=== PATIENT | male | born 1970 | race American Indian/Alaskan Native ===

== ENCOUNTER 2020-08-11 04:01 | Emergency (ER) | payer MEDICAID ==
[2020-08-11 04:56] LABS: Basophils # (Auto) 0.1 K/mm3 (0.0-0.1); Basophils % (Auto) 0.5 % (0.0-1.8); Eosinophils # (Auto) 0.1 K/mm3 (0.0-0.4); Hematocrit 47.9 % (35.5-45.6); Hemoglobin 16.3 gm/dl (11.8-15.2); Lymphocytes # (Auto) 1.4 K/mm3 (1.2-5.4); Lymphocytes % (Auto) 11.4 % (13.4-35.0); Mean Corpuscular HGB Conc 34 % (32-34); Mean Corpuscular Volume 88 fl (84-94); Monocytes # (Auto) 0.7 K/mm3 (0.0-0.8); Monocytes % (Auto) 6.1 % (0.0-7.3); Platelet Count 339 K/mm3 (140-440); Red Blood Count 5.47 M/mm3 (3.65-5.03); Red Cell Distribution Width 15.8 % (13.2-15.2)
[2020-08-11 05:10] LABS: Calcium 9.7 mg/dL (8.4-10.2)
[2020-08-11 05:57] VITALS: BP 127/103
--- NOTE | 2020-08-11 07:28 | Emergency Department Report ---
HPI - General Chief Complaint: Psych Time Seen by Provider: 08/11/20 07:11 - [facility] HPI: Room 22 The patient is a 49-year-old male present with a chief complaint of paranoia. The patient states last night he felt as though something was not right. The pa dolores states he heard something outside of his window. Patient states he believes he heard whispering. He states he discussed this with the home salesman/owner who he is staying with. The patient states he eventually called police because of the sounds he heard. Patient denies suicidal homicidal ideation. Patient admits to auditory hallucinations stating he hears voices at times this is a things that do not make sense for sounds like a radio playing in the background. Patient denies command hallucinations. Patient states he has been mostly compliant with his psychiatric medications recently. ED Past Medical Hx - Past Medical History Previous Medical History?: Yes Hx Hypertension: Yes Hx Psychiatric Treatment: Yes (schizophrenia, depression) - Surgical History Additional Surgical History: left hip - Family History Family history: no significant - Social History Smoking Status: Current Every Day Smoker (1 pack/day) Substance Use Type: Alcohol, Marijuana ED Review of Systems ROS: Stated complaint: MH EVAL Other details as noted in HPI Constitutional: no symptoms reported Eyes: denies: eye pain ENT: denies: ear pain Respiratory: no symptoms reported Cardiovascular: denies: chest pain Endocrine: no symptoms reported Gastrointestinal: denies: abdominal pain Genitourinary: denies: dysuria Musculoskeletal: denies: back pain Neurological: denies: headache Psychiatric: auditory hallucinations. denies: homicidal thoughts, suicidal thoughts Physical Exam - Physical Exam Vital Signs: Vital Signs 08/11/20 04:29 Temperature 98.5 F Pulse Rate 114 H Respiratory 18 Rate Blood Pressure 127/103 O2 Sat by Pulse 96 Oximetry Physical Exam: GENERAL: The patient is well-developed well-nourished male lying on stretcher not appearing to be in acute distress. [] HEENT: Normocephalic. Atraumatic. Extraocular motions are intact. Patient has moist mucous membranes. NECK: Supple. Trachea midline CHEST/LUNGS: Clear to auscultation. There is no respiratory distress noted. HEART/CARDIOVASCULAR: Regular. There is no tachycardia. There is no gallop rub or murmur. ABDOMEN: Abdomen is soft, nontender. Patient has normal bowel sounds. There is no abdominal distention. SKIN: There is no rash. There is no edema. There is no diaphoresis. NEURO: The patient is awake, alert, and oriented. The patient is cooperative. The patient has no focal neurologic deficits. The patient has normal speech MUSCULOSKELETAL: There is no evidence of acute injury. ED Course Vital Signs 08/11/20 04:29 Temperature 98.5 F Pulse Rate 114 H Respiratory 18 Rate Blood Pressure 127/103 O2 Sat by Pulse 96 Oximetry ED Medical Decision Making - Lab Data Result diagrams: 08/11/20 04:35 08/11/20 04:35 - Differential Diagnosis Schizophrenia Critical care attestation.: If time is entered above; I have spent that time in minutes in the direct care of this critically ill patient, excluding procedure time. ED Disposition Clinical Impression: Schizophrenia Disposition: DC/TX-65 PSY HOSP/PSY UNIT Is pt being admited?: No Does the pt Need Aspirin: No Condition: Stable Additional Instructions: Professional and Agency Contacts To help Resolve Crises (08/10) [place] Crisis Line: Suicide Prevention Line: Crisis Text Line: Text START to [phone] Emergency: 911 Outpatient COMMUNITY Behavioral Health Resources: [place]: [facility] [address] [place], [place] [address] [facility] [address] [place] [address] Saturday thru Saturday - 8am - 5pm Call to schedule an assessment for mental health and substance abuse programs [facility] Address: [address] [place] [address] Saturday thru Saturday- 7am-2pm [facility] Address: [address] [place] [address] Saturday thru Saturday: 8:30AM-5PM Referrals: PRIMARY CAREMD [Primary Care Provider] - 3-5 Days
--- NOTE | 2020-08-11 11:16 | Consultation ---
History of Present Illness - Reason for Consult Consult date: 08/11/20 Reason for consult: hallucinations - History of Present Psychiatric Illness Per ED Note: The patient is a 49-year-old male present with a chief complaint of paranoia. The patient states last night he felt as though something was not right. The patient states he heard something outside of his window. Patient states he believes he heard whispering. He states he discussed this with the home risk consultant who he is staying with. The patient states he eventually called police because of the sounds he heard. Patient denies suicidal homicidal ideation. Patient admits to auditory hallucinations stating he hears voices at times this is a things that do not make sense for sounds like a radio playing in the background. Patient denies command hallucinations. Patient states he has been mostly compliant with his psychiatric medications recently. Adriano Maier is a 49y/o male patient who presented to the ER for paranoia. During my evaluation of the patient today he is a/o x 4. He is calm, cooperative and conversational. He is pleasant. The patient says he has a history of schizophrenia. He says he's on seroquel, prozac and xanax and take them every day. The patient says he has panic attacks. He denies SI/HI. He states "noooo, I wouldn't do nothing like that." The patient says he lives with this lady. He says "at times though I do feel like she is talking about me. She be acting funny sometimes." The patient denies hallucinations at present. He states "I know I told them that last night, but I feel better." The patient laughs and states "I was tripping." He verbalizes using THC and "a little alcohol every now and then." PAST PSYCHIATRIC HISTORY Diagnoses: Schizophrenia Suicide attempts or Self-harm behavior: Denies Prior psychiatric hospitalizations: Denies Substance Abuse history: "weed" Previous psychiatric medications tried: seroquel, xanax, prozac Outpatient treatment: Yes PAST MEDICAL HISTORY: None reported Family Psychiatric History: None reported or documented SOCIAL HISTORY Marital Status: Single Living Arrangements: with a lady Employment Status: Disabled Access to guns/weapons: Denies Education: high school History of Abuse: none reported Legal History: none REVIEW OF SYSTEMS Constitutional: Negative for weight loss ENT: Negative for stridor Respiratory: Negative for cough or hemoptysis All other systems reviewed and are negative MENTAL STATUS EXAMINATION General Appearance and Behavior: Age appropriate, not wearing appropriate clothes, good eye contact, calm and cooperative, polite with questioning, pleasant Cooperation: Engaged Psychomotor Behavior: Psychomotor normal Mood: good Affect and affective range: Euthymic Thought Process: Goal directed Thought Content: None Speech: Normal tone and pace Suicidal Ideation: Denies Homicidal Ideation: Denies Hallucinations: Denies Delusions: None elicited Insight and Judgment: Limited insight and judgment Memory: Normal Attention: Undivided attention impaired Orientation: Alert, oriented x 4 Assessment: Hx of schizophrenia Treatment Plan No scripts given at this time Continue home meds previously prescribed Risks, benefits and alternatives of medications discussed with the patient, questions answered and consent obtained from patient. PSYCHOTHERAPY: Supportive psychotherapy provided MEDICAL: Per primary team DELIRIUM PRECAUTIONS: Please re-orient patient frequently, keep lights on during the day, and minimize benzodiazepines and opiates as these medications could worsen patient's confusion. HOME OFFICE CLAIMS EXAMINER: per primary DISPOSITION: Do not recommend acute inpatient psychiatric hospitalization at this time. The patient is to abstain from all illicit drug use FOLLOW-UP: will sign off Thank you for the consult. Please contact with any questions and/or concerns. Case discussed with Dr. Almonte who agrees with current disposition Medications and Allergies Allergies Allergy/AdvReac Type Severity Reaction Status Date / Time No Known Allergies Allergy Unverified 08/11/20 04:28 Mental Status Exam - Vital signs Last Vital Signs Temp 98.5 F 08/11/20 04:29 Pulse 114 H 08/11/20 04:29 Resp 18 08/11/20 04:29 BP 127/103 08/11/20 04:29 Pulse Ox 96 08/11/20 04:29 Results Result Diagrams: 08/11/20 04:35 08/11/20 04:35 Abnormal lab results 08/11/20 08/11/20 08/11/20 Range/Units 04:35 04:35 04:35 WBC (4.5-11.0) K/mm3 RBC (3.65-5.03) M/mm3 Hgb (11.8-15.2) gm/dl Hct (35.5-45.6) % RDW (13.2-15.2) % Lymph % (Auto) (13.4-35.0) % Seg Neutrophils % (40.0-70.0) % Seg Neutrophils # (1.8-7.7) K/mm3 Creatinine 1.9 H (0.8-1.3) mg/dL Glucose 126 H (75-100) mg/dL Salicylates < 0.3 L (2.8-20.0) mg/dL Acetaminophen 5.0 L (10.0-30.0) ug/mL 08/11/20 Range/Units 04:35 WBC 12.2 H (4.5-11.0) K/mm3 RBC 5.47 H (3.65-5.03) M/mm3 Hgb 16.3 H (11.8-15.2) gm/dl Hct 47.9 H (35.5-45.6) % RDW 15.8 H (13.2-15.2) % Lymph % (Auto) 11.4 L (13.4-35.0) % Seg Neutrophils % 81.0 H (40.0-70.0) % Seg Neutrophils # 9.9 H (1.8-7.7) K/mm3 Creatinine (0.8-1.3) mg/dL Glucose (75-100) mg/dL Salicylates (2.8-20.0) mg/dL Acetaminophen (10.0-30.0) ug/mL All other labs normal.
[2020-08-11 12:35] LABS: Amphetamine Screen,Urine PRESUMPTIVE POSITIVE; Benzodiazepines Screen,Urine PRESUMPTIVE NEGATIVE; Cannabinoid Screen,Urine PRESUMPTIVE POSITIVE; Cocaine Screen,Urine PRESUMPTIVE NEGATIVE; Methadone Screen,Urine PRESUMPTIVE NEGATIVE; Opiate Screen,Urine PRESUMPTIVE NEGATIVE
[2020-08-11 12:54] LABS: Bilirubin,Urine NEG (Negative); Blood,Urine NEG (Negative); Color,Urine Yellow (Yellow); Mucus,Urine 3+ /HPF
== END 2020-08-11 17:48 ==
LOC: EEVIPCON 04:01 → ED 04:01
DX: F20.9 Schizophrenia, unspecified (principal); I10 Essential (primary) hypertension; F17.200 Nicotine dependence, unspecified, uncomplicated; F12.10 Cannabis abuse, uncomplicated; Z98.890 Other specified postprocedural states
CPT/HCPCS: 36415; 80048; 80307; 80320; 81001; 85025; G0480

== ENCOUNTER 2020-09-29 22:51 | Emergency (ER) | payer MEDICAID ==
[2020-09-29] MEDS ORDERED: ASPIRIN 325 MG TAB PO ONE (23:37)
[2020-09-30 00:28] LABS: Alanine Aminotransferase 19 units/L (7-56); Albumin 4.9 g/dL (3.9-5); BUN/Creatinine Ratio 10; Blood Urea Nitrogen 15 mg/dL (9-20); Hemolysis Index 2
[2020-09-30 00:36] LABS: Basophils # (Auto) 0.2 K/mm3 (0.0-0.1); Basophils % (Auto) 1.4 % (0.0-1.8); Eosinophils % (Auto) 0.3 % (0.0-4.3); Hematocrit 48.1 % (35.5-45.6); Lymphocytes # (Auto) 1.5 K/mm3 (1.2-5.4); Lymphocytes % (Auto) 10.3 % (13.4-35.0); Mean Corpuscular HGB Conc 33 % (32-34); Mean Corpuscular Volume 89 fl (84-94); Monocytes # (Auto) 1.2 K/mm3 (0.0-0.8); Monocytes % (Auto) 8.1 % (0.0-7.3); Platelet Count 352 K/mm3 (140-440); Red Blood Count 5.41 M/mm3 (3.65-5.03); Red Cell Distribution Width 15.9 % (13.2-15.2)
--- NOTE | 2020-09-30 00:56 | XRay Report ---
XR chest routine 2V INDICATION / CLINICAL INFORMATION: chest pain. COMPARISON: None available. FINDINGS: SUPPORT DEVICES: None. HEART /PULMONARY VASCULATURE: No significant abnormality. LUNGS / PLEURA: No significant pulmonary or pleural abnormality. No pneumothorax. ADDITIONAL FINDINGS: No significant additional findings. IMPRESSION: 1. No acute findings. Signer Name: Mode Ernst MD Signed: 09/30/2020 12:51 AM Workstation Name: [id number]
--- NOTE | 2020-09-30 10:21 | Electrocardiograph Report ---
[facility] Test Date: 2020-09-29 Test Time: 23:37:34 Pat Name: RON SIM Department: Room: Gender: M Sonography Technician: ROSITA : 1970 Requested By: ED DOC Order Number: [id number] Reading MD: Enrrique Oro Measurements Intervals [place] Rate: 104 P: 77 OK: 152 QRS: 74 QRSD: 82 T: 49 QT: 330 QTc: 435 Interpretive Statements Sinus tachycardia Left atrial enlargement No previous ECG available for comparison Electronically Signed On 09-30-2020 10:21:18 EDT by Enrrique Oro
== END 2020-09-30 | disposition left against medical advice (07) ==
LOC: ED 22:51
DX: R07.89 Other chest pain (principal); Z53.21 Procedure and treatment not carried out due to patient leaving prior to being seen by health care provider
CPT/HCPCS: 36415; 71046; 80053; 84484; 85025; 93005

== ENCOUNTER 2020-10-03 00:45 | Emergency (ER) | payer MEDICAID | END 2020-10-03 01:30 | disposition left against medical advice (07) | LOC: ED 00:45 | DX: Z00.8 Encounter for other general examination (principal); Z53.21 Procedure and treatment not carried out due to patient leaving prior to being seen by health care provider ==